=== PATIENT | female | born 1995 | race Caucasian/White ===

== ENCOUNTER 2022-09-06 19:48 | Emergency (ER) | payer MEDICAID, OTHER ==
[~2022-09-06] VITALS: Ht 170.2 cm; Wt 107.0 kg
[2022-09-06 19:53] VITALS: BP 140/109
[2022-09-06] MEDS ORDERED: FAMOTIDINE 20MG TABLET PO ONE (21:15)
[2022-09-06] MEDS ORDERED: PREDNISONE 20MG TABLET PO ONE (21:15)
[2022-09-06] MEDS ORDERED: DIPHENHYDRAMINE 50MG CAPSULE PO ONE (21:15)
[2022-09-06] MEDS ORDERED: P20 MT (23:31)
== END 2022-09-06 23:40 | disposition home or self-care (01) ==
LOC: ER 19:48
DX: T78.40XA Allergy, unspecified, initial encounter (principal); Z88.0 Allergy status to penicillin; X58.XXXA Exposure to other specified factors, initial encounter
CPT/HCPCS: 81025; 99284; J7512; Q0163